=== PATIENT | male | born 1990 | race African-American/Black ===

== ENCOUNTER 2016-11-06 20:51 | Observation (INO) | payer BC ==
[2016-11-06] MEDS ORDERED: SODIUM CHLORIDE 0.9% 1,000 ML IV STA (22:08)
[2016-11-06] MEDS ORDERED: ACETAMINOPHEN TAB 325 MG TAB PO STA (22:08)
--- NOTE | 2016-11-06 22:25 | ED ---
Headache HPI - General Chief Complaint: Headache Stated Complaint: Headache /Dizzy Time Seen by Provider: 11/06/16 21:31 Mode of arrival: ambulatory Limitations: no limitations - History of Present Illness Initial Comments: The patient is a 26-year-old male who presents to the ED with a chief complaint of headache. Patient states that the headache developed while he was at work earlier today. 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 Patient states that he was using his hands to work on a project when he suddenly felt the headache develop. He notes that there is a sensation of lightheadedness associated with this headache. He felt as if he was going to fall over. Patient denies any photophobia or phonophobia. Patient notes that he's also been struggling with intermittent chest pains. He states it is been an ongoing problem over the course the past year. He has visited the ED and followed up with his PCP over the course the past year several times regarding this problem. Patient states that he is always told that he has normal EKGs and is likely anxiety that is causing the symptoms. Patient states that he has had intermittent chest pains over the course of the day today. His pain has been present for a period of at least 6 hours. Patient denies any cocaine use. He denies any fevers or chills. Denies any shortness of breath. Patient states that he does not believe he has a carbon monoxide detector at home. - Related Data Home Medications Medication Instructions Recorded Confirmed No Known Home Medications [No 11/06/16 11/06/16 Known Home Medications] Allergies Allergy/AdvReac Type Severity Reaction Status Date / Time No Known Allergies Allergy Verified 11/06/16 21:53 Review of Systems ROS Statement: Those systems with pertinent positive or pertinent negative responses have been documented in the HPI. ROS Other: All systems not noted in ROS Statement are negative. Constitutional: Denies: fever, chills, weakness Eyes: Denies: eye pain ENT: Denies: ear pain, throat pain, dental pain Respiratory: Denies: cough, dyspnea, wheezes, hemoptysis, stridor Cardiovascular: Reports: chest pain. Denies: palpitations, dyspnea on exertion , orthopnea, edema Endocrine: Reports: fatigue Gastrointestinal: Reports: nausea. Denies: abdominal pain, vomiting, diarrhea, constipation, hematemesis, melena Genitourinary: Denies: urgency, dysuria, frequency, hematuria, discharge Musculoskeletal: Denies: back pain Skin: Denies: rash, lesions Neurological: Reports: headache. Denies: weakness, numbness, paresthesias, confusion Psychiatric: Reports: anxiety. Denies: depression, homicidal thoughts, suicidal thoughts Past Medical History Past Medical History: No Reported History History of Any Multi-Drug Resistant Organisms: None Reported Past Surgical History: No Surgical Hx Reported Additional Past Surgical History / Comment(s): (L) thumb surgery post fx. Past Psychological History: Anxiety Smoking Status: Never smoker Past Alcohol Use History: Occasional Past Drug Use History: Marijuana General Exam Limitations: no limitations General appearance: alert, in no apparent distress Head exam: Present: atraumatic, normocephalic Eye exam: Present: normal appearance, PERRL, EOMI Pupils: Present: normal accommodation, other (pupils are 4mm, equal and reactive ) ENT exam: Present: normal exam, mucous membranes dry Neck exam: Present: normal inspection, full ROM. Absent: tenderness Respiratory exam: Present: normal lung sounds bilaterally. Absent: respiratory distress, wheezes, rales, rhonchi, stridor Cardiovascular Exam: Present: regular rate, normal rhythm GI/Abdominal exam: Present: soft. Absent: distended, tenderness, guarding, rebound Extremities exam: Present: normal inspection, full ROM Neurological exam: Present: alert, oriented X3 Psychiatric exam: Present: normal affect, normal mood. Absent: depressed, agitated, anxious Skin exam: Present: warm, dry, intact Course Vital Signs 11/06/16 11/06/16 21:21 23:31 Temperature 98.1 F Pulse Rate 77 73 Respiratory 16 14 Rate Blood Pressure 142/88 153/87 O2 Sat by Pulse 99 100 Oximetry Medical Decision Making - Medical Decision Making Patient is a 26-year-old male who presents to the ED with a chief complaint of headache. Patient notes that the headache has been present over the course of the past 3 hours. Patient notes that he has also been having chest pains over the course the day today. These have been present for about 6 hours total. Patient notes that he has been having intermittent chest pains over the course the past year. Nothing in particular seems to cause the chest pains to develop. Patient denies any fevers or chills. Denies any family history of cardiac disease or sudden cardiac . Check EKG. Troponin 1. Given the patient's duration of symptoms, this should be sufficient. Check CT had given new-onset headache. Check well. Basic blood work. Chest x-ray. 11:33 PM Patient updated of overall findings. He states that his headache is improved after receiving Tylenol and IV fluids. Patient states that his chest pain has resolved. I am suspicious that the patient may have hypertrophic cardiomyopathy. I believe the patient would benefit from staying overnight to have an echocardiogram performed in the morning. The patient is amenable to staying in the hospital to have this performed. 12:21 AM Carbon Monoxide Level noted to be within normal limits. - Lab Data Result diagrams: 11/06/16 22:25 11/06/16 22:25 Lab Results 11/06/16 11/06/16 11/06/16 Range/Units 22:25 22:25 22:25 WBC 5.5 (3.8-10.6) k/uL RBC 5.96 H (4.30-5.90) m/uL Hgb 16.2 (13.0-17.5) gm/dL Hct 50.6 (39.0-53.0) % MCV 84.9 (80.0-100.0) fL MCH 27.2 (25.0-35.0) pg MCHC 32.0 (31.0-37.0) g/dL RDW 14.1 (11.5-15.5) % Plt Count 279 (150-450) k/uL Neutrophils % 52 % Lymphocytes % 38 % Monocytes % 5 % Eosinophils % 1 % Basophils % 1 % Neutrophils # 2.9 (1.3-7.7) k/uL Lymphocytes # 2.1 (1.0-4.8) k/uL Monocytes # 0.3 (0-1.0) k/uL Eosinophils # 0.1 (0-0.7) k/uL Basophils # 0.0 (0-0.2) k/uL Carbon Monoxide, Quant (<10.0) % Sodium 143 (137-145) mmol/L Potassium 4.4 (3.5-5.1) mmol/L Chloride 101 (98-107) mmol/L Carbon Dioxide 29 (22-30) mmol/L Anion Gap 13 mmol/L BUN 19 (9-20) mg/dL Creatinine 1.00 (0.66-1.25) mg/dL Est GFR (MDRD) Af Amer >60 (>60 ml/min/1.73 sqM) Est GFR (MDRD) Non-Af >60 (>60 ml/min/1.73 sqM) Glucose 92 (74-99) mg/dL Calcium 10.2 (8.4-10.2) mg/dL Magnesium 2.0 (1.6-2.3) mg/dL Troponin I (0.000-0.034) ng/mL TSH 1.240 (0.465-4.680) mIU/L Urine Color Yellow Urine Appearance Cloudy (Clear) Urine pH 6.5 (5.0-8.0) Ur Specific Fisher 1.013 (1.001-1.035) Urine Protein Negative (Negative) Urine Glucose (UA) Negative (Negative) Urine Ketones Negative (Negative) Urine Blood Trace H (Negative) Urine Nitrite Negative (Negative) Urine Bilirubin Negative (Negative) Urine Urobilinogen <2.0 (<2.0) mg/dL Ur Leukocyte Esterase Negative (Negative) Urine RBC 5 (0-5) /hpf Urine WBC 2 (0-5) /hpf Urine Opiates Screen (NotDetected) Ur Oxycodone Screen (NotDetected) Urine Methadone Screen (NotDetected) Ur Propoxyphene Screen (NotDetected) Ur Barbiturates Screen (NotDetected) U Tricyclic Antidepress (NotDetected) Ur Phencyclidine Scrn (NotDetected) Ur Amphetamines Screen (NotDetected) U Methamphetamines Scrn (NotDetected) U Benzodiazepines Scrn (NotDetected) Urine Cocaine Screen (NotDetected) U Marijuana (THC) Screen (NotDetected) 11/06/16 11/06/16 11/06/16 Range/Units 22:25 22:25 23:30 WBC (3.8-10.6) k/uL RBC (4.30-5.90) m/uL Hgb (13.0-17.5) gm/dL Hct (39.0-53.0) % MCV (80.0-100.0) fL MCH (25.0-35.0) pg MCHC (31.0-37.0) g/dL RDW (11.5-15.5) % Plt Count (150-450) k/uL Neutrophils % % Lymphocytes % % Monocytes % % Eosinophils % % Basophils % % Neutrophils # (1.3-7.7) k/uL Lymphocytes # (1.0-4.8) k/uL Monocytes # (0-1.0) k/uL Eosinophils # (0-0.7) k/uL Basophils # (0-0.2) k/uL Carbon Monoxide, Quant 1.1 (<10.0) % Sodium (137-145) mmol/L Potassium (3.5-5.1) mmol/L Chloride (98-107) mmol/L Carbon Dioxide (22-30) mmol/L Anion Gap mmol/L BUN (9-20) mg/dL Creatinine (0.66-1.25) mg/dL Est GFR (MDRD) Af Amer (>60 ml/min/1.73 sqM) Est GFR (MDRD) Non-Af (>60 ml/min/1.73 sqM) Glucose (74-99) mg/dL Calcium (8.4-10.2) mg/dL Magnesium (1.6-2.3) mg/dL Troponin I <0.012 (0.000-0.034) ng/mL TSH (0.465-4.680) mIU/L Urine Color Urine Appearance (Clear) Urine pH (5.0-8.0) Ur Specific Fisher (1.001-1.035) Urine Protein (Negative) Urine Glucose (UA) (Negative) Urine Ketones (Negative) Urine Blood (Negative) Urine Nitrite (Negative) Urine Bilirubin (Negative) Urine Urobilinogen (<2.0) mg/dL Ur Leukocyte Esterase (Negative) Urine RBC (0-5) /hpf Urine WBC (0-5) /hpf Urine Opiates Screen Not Detected (NotDetected) Ur Oxycodone Screen Not Detected (NotDetected) Urine Methadone Screen Not Detected (NotDetected) Ur Propoxyphene Screen Not Detected (NotDetected) Ur Barbiturates Screen Not Detected (NotDetected) U Tricyclic Antidepress Not Detected (NotDetected) Ur Phencyclidine Scrn Not Detected (NotDetected) Ur Amphetamines Screen Not Detected (NotDetected) U Methamphetamines Scrn Not Detected (NotDetected) U Benzodiazepines Scrn Not Detected (NotDetected) Urine Cocaine Screen Not Detected (NotDetected) U Marijuana (THC) Screen Detected H (NotDetected) EKG demonstrates NSR. There are Q waves present in the anterior lateral leads. In addition there is evidence of LVH. These findings together are suspicious for possible HOCM. 11/06/16 22:54 Disposition Clinical Impression: Headache, Chest pain Disposition: ADMITTED IP TO THIS [facility] Condition: Good Time of Disposition: 23:45 Decision to Admit Reason: Admit from EC Decision Date: 11/06/16 Decision Time: 23:45
[2016-11-06 22:46] LABS: Basophils % (A) 1 %; CH 27.6; CHCM 32.7; Eosinophils # (A) 0.1 k/uL (0-0.7); Eosinophils % (A) 1 %; HCT 50.6 % (39.0-53.0); HDW 2.82; HGB 16.2 gm/dL (13.0-17.5); Luc # (Auto) 0.21; Luc % (Auto) 4; Lymphocytes # (A) 2.1 k/uL (1.0-4.8); Lymphocytes % (A) 38 %; MCH 27.2 pg (25.0-35.0); MCV 84.9 fL (80.0-100.0); Mean Platelet Volume 7.8; Monocytes # (A) 0.3 k/uL (0-1.0); Monocytes % (A) 5 %; Neutrophils # (A) 2.9 k/uL (1.3-7.7); Neutrophils % (A) 52 %; RBC 5.96 m/uL (4.30-5.90); RDW 14.1 % (11.5-15.5); WBC 5.5 k/uL (3.8-10.6); WBC (Perox) 5.26
[2016-11-06 22:52] LABS: Appearance,Urine Cloudy (Clear); Bilirubin,Urine Negative (Negative); Glucose,Urine (UA) Negative (Negative); Ketones,Urine Negative (Negative); Leukocyte Esterase,Urine Negative (Negative); Nitrite,Urine Negative (Negative); PH, Urine 6.5 (5.0-8.0); Particle Count 11347; Protein,Urine Negative (Negative); RBC,Urine 5 /hpf (0-5); Specific Gravity,Urine 1.013 (1.001-1.035); UA Billing (MACRO vs. MICRO) MICRO; Urobilinogen,Urine <2.0 mg/dL (<2.0); WBC,Urine 2 /hpf (0-5)
--- NOTE | 2016-11-06 22:59 | XR ---
EXAMINATION TYPE: XR chest 2V DATE OF EXAM: 11/06/2016 10:43 PM COMPARISON: 09/08/2014 HISTORY: Chest pain TECHNIQUE: Frontal and lateral views of the chest are obtained. FINDINGS: Heart and mediastinum are normal. Lungs are clear. Diaphragm is normal. Bony thorax appear s normal. IMPRESSION: Normal chest. No change.
--- NOTE | 2016-11-06 22:59 | CT ---
EXAMINATION TYPE: CT brain wo con DATE OF EXAM: 11/06/2016 10:49 PM COMPARISON: 09/08/2014 HISTORY: Headache and dizziness. CT DLP: 1112.00 mGycm Automated exposure control for dose reduction was used. FINDINGS: Ventricles and sulci appear normal. There is no mass effect nor midline shift. There is no sign of in tracranial hemorrhage. The calvarium is intact. IMPRESSION: Normal unenhanced head CT scan.
[2016-11-06 23:01] LABS: Anion Gap 13 mmol/L; Blood Urea Nitrogen 19 mg/dL (9-20); Calcium 10.2 mg/dL (8.4-10.2); Carbon Dioxide 29 mmol/L (22-30); Chloride 101 mmol/L (98-107); Glucose 92 mg/dL (74-99); Non-African American GFR(MDRD) >60 (>60 ml/min/1.73 sqM); Potassium 4.4 mmol/L (3.5-5.1); Sodium 143 mmol/L (137-145)
[2016-11-06] MEDS ORDERED: NALOXONE 0.4 MG/ML 1 ML VIAL IV PRN (23:45)
[2016-11-07] MEDS ORDERED: ACETAMINOPHEN TAB 325 MG TAB PO PRN (00:54)
[2016-11-07 01:05] VITALS: BMI 25.7
[2016-11-07 04:21] LABS: Basophils % (A) 0 %; CH 27.6; CHCM 32.6; Eosinophils # (A) 0.1 k/uL (0-0.7); Eosinophils % (A) 1 %; HCT 44.3 % (39.0-53.0); HDW 2.78; HGB 14.1 gm/dL (13.0-17.5); Luc # (Auto) 0.15; Luc % (Auto) 3; Lymphocytes # (A) 2.1 k/uL (1.0-4.8); Lymphocytes % (A) 43 %; MCH 27.1 pg (25.0-35.0); MCHC 31.8 g/dL (31.0-37.0); MCV 85.1 fL (80.0-100.0); Mean Platelet Volume 7.7; Monocytes # (A) 0.2 k/uL (0-1.0); Monocytes % (A) 5 %; Neutrophils # (A) 2.4 k/uL (1.3-7.7); Neutrophils % (A) 48 %; RBC 5.21 m/uL (4.30-5.90); RDW 14.1 % (11.5-15.5); WBC (Perox) 5.23
[2016-11-07 04:27] LABS: Anion Gap 8 mmol/L; Blood Urea Nitrogen 17 mg/dL (9-20); Calcium 9.3 mg/dL (8.4-10.2); Carbon Dioxide 29 mmol/L (22-30); Chloride 103 mmol/L (98-107); Glucose 118 mg/dL (74-99); INR 1.1 (<1.1); Non-African American GFR(MDRD) >60 (>60 ml/min/1.73 sqM); Potassium 3.7 mmol/L (3.5-5.1); Prothrombin Time 10.8 sec (9.0-12.0); Sodium 140 mmol/L (137-145)
[2016-11-07 04:50] LABS: Creatine Kinase 229 U/L (55-170)
[2016-11-07 05:03] LABS: Troponin I <0.012 ng/mL (0.000-0.034)
[2016-11-07 05:20] LABS: Creatine Kinase MB 4.2 ng/mL (0.0-2.4)
--- NOTE | 2016-11-07 09:14 | P.CRDCN ---
History of Present Illness Consult date: 11/07/16 History of present illness: This is a pleasant 26-year-old gentleman with no significant medical history presented to the emergency room complaining of headache associated with dizziness and lightheadedness. He underwent a computed tomography scan of the brain which came in to be unremarkable. He reported intermittent episodes of chest discomfort, on the left side of the chest, as a sharp kind of discomfort without any radiation and without any associated symptoms. The past medical history is unremarkable. He does smoke marijuana. He does not have any family history of coronary artery disease. The EKG showed sinus rhythm with early repolarization. The cardiac enzymes were checked and came in to be unremarkable. Past Medical History Past Medical History: Chest Pain / Angina, GERD/Reflux Additional Past Medical History / Comment(s): paracarditis History of Any Multi-Drug Resistant Organisms: None Reported Past Surgical History: No Surgical Hx Reported Additional Past Surgical History / Comment(s): (L) thumb surgery post fx had pins and have since been removed Past Anesthesia/Blood Transfusion Reactions: No Reported Reaction Past Psychological History: Anxiety Smoking Status: Never smoker Past Alcohol Use History: Occasional Past Drug Use History: Marijuana - Past Family History Mother Family Medical History: COPD, Diabetes Mellitus, Hypertension Father Family Medical History: Hypertension Medications and Allergies Home Medications Medication Instructions Recorded Confirmed Type No Known Home Medications [No 11/06/16 11/07/16 History Known Home Medications] Allergies Allergy/AdvReac Type Severity Reaction Status Date / Time No Known Allergies Allergy Verified 11/06/16 21:53 Physical Exam Vitals: Vital Signs Temp Pulse Resp BP Pulse Ox 11/07/16 07:35 98.2 F 60 17 136/63 97 11/07/16 04:00 98.2 F 75 16 134/80 98 11/07/16 01:21 16 11/07/16 00:58 98.4 F 78 16 151/77 96 Intake and Output 11/06/16 11/07/16 11/07/16 22:59 06:59 14:59 Other: # Voids 1 Weight 70.3 kg - Constitutional General appearance: no acute distress - Respiratory Respiratory: bilateral: CTA - Cardiovascular Rhythm: regular Heart sounds: normal: S1, S2 Results 11/07/16 03:48 11/07/16 03:48 Cardiac Enzymes 11/07/16 Range/Units 03:48 CK-MB (CK-2) 4.2 H* (0.0-2.4) ng/mL Troponin I <0.012 (0.000-0.034) ng/mL Coagulation 11/07/16 Range/Units 03:48 PT 10.8 (9.0-12.0) sec CBC 11/07/16 Range/Units 03:48 WBC 5.0 (3.8-10.6) k/uL RBC 5.21 (4.30-5.90) m/uL Hgb 14.1 (13.0-17.5) gm/dL Hct 44.3 (39.0-53.0) % Plt Count 207 (150-450) k/uL Comprehensive Metabolic Panel 11/07/16 Range/Units 03:48 Sodium 140 (137-145) mmol/L Potassium 3.7 (3.5-5.1) mmol/L Chloride 103 (98-107) mmol/L Carbon Dioxide 29 (22-30) mmol/L BUN 17 (9-20) mg/dL Creatinine 0.90 (0.66-1.25) mg/dL Glucose 118 H (74-99) mg/dL Calcium 9.3 (8.4-10.2) mg/dL Current Medications Generic Name Dose Route Start Last Admin Trade Name Freq PRN Reason Stop Dose Admin Acetaminophen 650 mg 11/07/16 00:54 Tylenol Tab PO Q4HR PRN Fever and/ or Pain Naloxone HCl 0.2 mg 11/06/16 23:45 Narcan IV Q2M PRN Opioid Reversal Intake and Output 11/06/16 11/07/16 11/07/16 22:59 06:59 14:59 Other: # Voids 1 Weight 70.3 kg 11/07/16 03:48 11/07/16 03:48 Assessment and Plan Plan: Assessment #1 atypical chest discomfort #2 history of marijuana use Plan #1 proceeding with a stress test #2 follow-up with the patient
[2016-11-07 11:33] VITALS: BP 131/62; PULSE 62; RESP 16; TEMP 98.4
[2016-11-07 11:50] LABS: Creatine Kinase 179 U/L (55-170)
[2016-11-07 11:59] LABS: Troponin I <0.012 ng/mL (0.000-0.034)
[2016-11-07 12:07] LABS: Creatine Kinase MB 3.2 ng/mL (0.0-2.4)
--- NOTE | 2016-11-07 14:09 | EST ---
DATE OF SERVICE: 11/06/2016 AGE: 26Y SEX: M HT: 65 WT: 154 lbs. Protocol Chris: Other: Stage: 5 Dur. of Exercise: 14:01 *Heart Rate Blood Pressure *Rest: 72 Rest: 141/62 * *Max. Achieved: 168 Maximum BP: 217/73 85% PMHR: 165 100% PMHR: 194 *METS: 13.7 INDICATIONS: MEDICATIONS: Baseline rhythm is sinus mechanism, rate of 72, normal axis and intervals, early repolarization changes. Baseline blood pressure 141/62 mmHg. Patient exercised on Chris protocol for 14 minutes, 1 second reaching peak rate of 168 beats per minute, which is equal to 86% maximum predicted heart rate; peak blood pressure 217/73 mmHg. Test was terminated secondary to fatigue. There was no chest pain. Electrocardiographic monitoring revealed no evidence of diagnostic ischemic ST deviation. IMPRESSION: 1. Good exercise tolerance. 2. Normal electrocardiograph response to exercise with no evidence of exercise-induced ischemia.
--- NOTE | 2016-11-07 18:51 | HP ---
DATE OF ADMISSION: 11/06/2016 CHIEF COMPLAINT: Chest pain and headache, dizziness. HISTORY OF ILLNESS: Mr. Call is a 26-year-old male with a known history of smoking, marijuana use, who came to the hospital with complaints of intermittent chest pain for the past 6 months. The patient says that he develops his chest pain when he has anxiety episodes; he went to his doctor several times for that, and was recommended to go to the ER at this time. Otherwise, patient was also complaining of headache and dizziness before he came to the hospital. Headache is associated with dizziness and lightheadedness. Denied any head injury. No recent illnesses or sick contacts at home. No recent travel. Patient had a CT of the brain which showed no acute intracranial process. Serial EKGs and troponins are negative. Cardiology recommended a stress test, which has been done today. Otherwise, patient does have a family history of coronary artery disease in his mother, including hypertension and diabetes mellitus. No fever. No chills. No complaints of cough or sputum production. No complaints of shortness of breath or pleuritic chest pain. No leg swelling. No orthopnea. No PND. REVIEW OF SYSTEMS: CONSTITUTIONAL: No fever. No chills. RESPIRATORY: No cough or sputum production. CARDIOVASCULAR: No chest pain or shortness of breath. ABDOMEN: No nausea, vomiting, abdominal pain. GENITOURINARY: Negative. ENDOCRINE: Negative. PSYCHIATRIC: Negative. SKIN: Negative. All other fourteen-point review of systems negative except as above. Past medical history includes: 1. GERD. 2. Chest pain/angina. PAST SURGICAL HISTORY: Left thumb surgery post fracture. Had pins that have since been removed. PSYCHOSOCIAL HISTORY: Anxiety. SOCIAL HISTORY: Patient does smoke. Smokes marijuana as well. Occasional alcohol use. Denied any drugs or IVDU. FAMILY HISTORY: Mother has diabetes, hypertension, COPD. HOME MEDICATIONS: None. ALLERGIES: NO KNOWN DRUG ALLERGIES. PHYSICAL EXAMINATION: [id number]-old male lying in bed comfortably. Awake, alert, oriented x3. No apparent distress. VITALS: Blood pressure is 148/88. Pulse is 77, respirations 18, temperature afebrile, pulse ox 99% on room air. HEENT: Atraumatic, normocephalic. Neck is supple. No JVD. CVS EXAM: S1, S2 heard. No murmurs. No gallop. No rub. LUNGS: Bilateral air entry is present. No wheezing. No crackles. Non-labored breathing. ABDOMEN: Soft, nontender. Bowel sounds are present. CLOCK REPAIR TECHNICIAN: Awake, alert, oriented x3. No focal deficit. EXTREMITIES: No edema. Pulses palpable bilaterally. No clubbing or cyanosis. PSYCHIATRIC: Cooperative. LABORATORY DATA: WBC 5.5, hemoglobin 16.2, platelets 279. INR 1.1. Sodium 143, potassium 4.4, chloride 101. Bicarb is 29. BUN 19, creatinine 1.0. CK is 229. TSH 1.24. UA negative for infection. UDS is positive for marijuana. Chest x-ray is negative. EKG showed sinus rhythm with sinus arrhythmia. CT head showed no acute intracranial process. IMPRESSION: 1. Atypical lower chest pain. Rule out acute coronary syndrome. 2. Headache and dizziness; exact etiology unknown. Possible migraine. 3. History of smoking. 4. Marijuana abuse. 5. Slightly elevated CPK level. DISCUSSION AND PLAN: Patient will continue to be monitored with serial EKGs and troponins. Patient has been seen by Cardiology, who recommended a stress test. Apparently patient has been having this chest pain for several months. Otherwise, patient is free of chest pain now. So far workup has been negative, including CT head. Further recommendations based on the clinical course. Patient was advised smoking cessation.
--- NOTE | 2016-11-08 13:16 | DS ---
DATE OF ADMISSION: 11/06/2016 DATE OF DISCHARGE: 11/07/2016 DISCHARGE DIAGNOSES: 1. Atypical chest pain, ruled out acute coronary syndrome. 2. Chest pain, most likely gastroesophageal reflux disease related. 3. Marijuana use. 4. Smoking cessation counseled. 5. Slightly elevated CPK level trending down. 6. Headache and dizziness resolved now. CT head is negative. HOSPITAL COURSE: Kt Call is a 26-year-old male who was admitted to the hospital with complaints of headaches, dizziness along with chest discomfort. The patient was telemonitored and serial EKGs and troponins were done. EKG showed sinus rhythm with sinus arrhythmia and serial troponins are negative. Other lab values within normal limits. The patient was seen by cardiology and also patient has a family history of coronary artery disease and patient was having headache, dizziness. CT head is negative. Patient was seen by cardiology and recommended stress test today, which showed normal heart response with stress. Otherwise, patient is stable to be discharged now. Currently chest pain free. Patient will be discharged home and follow up with the primary physician in 1 to 3 days. Discharge physical examination: 26-year-old male lying in bed comfortably, Awake, alert and oriented times three. The patient appears to be in no apparent distress. VITALS: Blood pressure is 131/62, pulse is 62, respirations 16, temperature afebrile, pulse ox 97% on room air. HEENT: Atraumatic, normocephalic. Neck is supple. No JVD. Heart: S1, S2 heard. No murmurs or gallop. LUNGS: Bilateral air entry is noted. ABDOMEN: Soft, nontender. Bowel sounds present. C WEB DEVELOPER: Awake, alert and oriented times three. EXTREMITIES: No edema. Pulses palpable bilaterally. No clubbing or cyanosis. LABORATORY DATA: Reviewed. Discharge medications include: Protonix 40 mg a.c. breakfast for 14 days and follow with the primary care physician in 1 to 2 days. Follow-up with Dr. Davis in 3 weeks. Home with self-care. Heart healthy diet. Patient was counseled for marijuana and cigarette smoking.
== END 2016-11-07 16:47 | disposition home or self-care (01) ==
LOC: EC 20:51 → 3OBS 23:45
PROVIDERS: ADMIT Internal Medicine; ATTEND Internal Medicine
DX: R07.89 Other chest pain (principal); R51 Headache; R42 Dizziness and giddiness; R74.8 Abnormal levels of other serum enzymes; F17.210 Nicotine dependence, cigarettes, uncomplicated; F12.90 Cannabis use, unspecified, uncomplicated; Z82.49 Family history of ischemic heart disease and other diseases of the circulatory system
CPT/HCPCS: 96360; 99285; 36415; 93005; 93017; 80048 ×2; 84443; 82375; 82550; 82553; 83735; 84484 ×2; 85025 ×2; 85610; 81001; 80306; 71020; 70450; G0378 ×2

== ENCOUNTER 2016-12-10 22:08 | Emergency (ER) | payer BC, OTHER ==
[2016-12-10 22:35] VITALS: BP 146/96; PULSE 83; RESP 20; TEMP 98.3
== END 2016-12-10 22:50 | disposition home or self-care (01) ==
LOC: EC 22:08
DX: Z02.89 Encounter for other administrative examinations (principal)

== ENCOUNTER 2017-10-13 09:04 | Emergency (ER) | payer BC ==
[2017-10-13 09:23] VITALS: BP 159/86; PULSE 77; RESP 16; TEMP 98.5
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
== END 2017-10-13 10:12 | disposition home or self-care (01) ==
LOC: EC 09:04
DX: S06.0X1A Concussion with loss of consciousness of 30 minutes or less, initial encounter (principal); S00.11XA Contusion of right eyelid and periocular area, initial encounter; S01.511A Laceration without foreign body of lip, initial encounter; S20.419A Abrasion of unspecified back wall of thorax, initial encounter; Y04.2XXA Assault by strike against or bumped into by another person, initial encounter
CPT/HCPCS: 70450; 72125; 99284

== ENCOUNTER → 2023-03-19 | Outpatient (CLI) | payer BC ==
--- NOTE | 2023-03-19 13:58 | NM ---
EXAMINATION TYPE: NM stress cardiolite complete DATE OF EXAM: 03/19/2023 COMPARISON: NONE CLINICAL INDICATION: Male, 32 years old with history of R94.31 abn ekg; TECHNIQUE: After the intravenous administration of 9.5 mCi Tc 99m Sestamibi - Rest images obtained 4 5 minutes post injection. The patient exercised using a JOANNE protocol and 1 minute prior to peak e xercise was injected with 25.5 mCi Tc 99m Sestamibi - Stress images obtained 40 minutes post injectio n. FINDINGS: Targeted heart rate (160 BPM) was achieved during performance of the study (164 bpm achieved). Total exercise time 16minutes. Review of stress and rest SPECT images demonstrates fixed decreased perfusio n along the inferior wall. No distinct reversibility is seen. Gated analysis shows normal wall motio n with an estimated left ventricular ejection fraction of 58 %. TID is calculated at 0.74, within no rmal limits. IMPRESSION: 1. Fixed defect along the inferior wall suspected to represent diaphragmatic attenuation artifact. 2. Otherwise, no scintigraphic evidence for inducible ischemia.
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
== END | disposition home or self-care (01) ==
LOC: RADNMMAIN 08:22
PROVIDERS: ATTEND Family Medicine
DX: R94.31 Abnormal electrocardiogram [ECG] [EKG] (principal)
CPT/HCPCS: 93017; 78452; A9500